=== PATIENT | female | born 1975 | race Caucasian/White ===

== ENCOUNTER 2024-07-30 16:27 | Emergency (ER) | payer OTHER, SELFPAY ==
[2024-07-30 16:35] VITALS: BP 113/70; PULSE 78; RESP 18; TEMP 36.6
[2024-07-30 16:52] VITALS: BP 113/70; PULSE 78; RESP 18; TEMP 36.6
--- NOTE | 2024-07-30 17:06 | ED_ITS ---
HPI - Dental/Oral General Chief complaint: Dental/Oral Stated complaint: Toothache Time Seen by Provider: 07/30/24 16:55 Source: patient, RN notes reviewed and old records reviewed Mode of arrival: ambulatory Limitations: no limitations History of Present Illness HPI Narrative: 48-year-old female presents to [facility] with complaints of dental pain to right lower jaw area with some radiation of pain to her right ear for the past week duration. Patient reports that she has bad teeth has multiple caries to her teeth with some missing teeth noted also. Patient reports that she has been taking Tylenol and Ibuprofen for her discomfort. Patient reports that she needs to get appointment to get all of her teeth pulled. MD Complaint: tooth pain Location: Tooth # (31) Onset (ago): week(s) (1 week) Duration: constant Severity scale (1-10): 8 Treatment prior to arrival: other (Tylenol or Ibuprofen ) Related Data Home Medications Medication Instructions Recorded Confirmed clonidine HCl 0.1 mg tablet 0.1 mg PO BID 07/30/24 07/30/24 hydroxyzine pamoate 50 mg capsule 50 mg PO QID PRN Anxiety 07/30/24 07/30/24 nicotine 21 mg/24 hr daily 1 patch topical DAILY 07/30/24 07/30/24 transdermal patch quetiapine 50 mg tablet 50 mg PO QHS 07/30/24 07/30/24 Allergies Allergy/AdvReac Type Severity Reaction Status Date / Time cefazolin [From [facility]] Allergy Unknown Verified 07/30/24 16:46 codeine Allergy Unknown Verified 07/30/24 16:46 morphine Allergy Unknown Verified 07/30/24 16:47 Review of Systems Review of Systems: CONSTITUTIONAL: Denies fever, chills, or sweats. ENT: Denies rhinorrhea, congestion, sore throat, or otalgia. Reports dental pain to right posterior jaw area with noted caries and swelling around #31 tooth CARDIOVASCULAR: Denies chest pain, palpitations, or edema. RESPIRATORY: Denies cough or dyspnea. SKIN: Denies rash or itching. MUSCULOSKELETAL: Denies myalgia. NEUROLOGIC: Denies headache All systems reviewed & are unremarkable except as noted in HPI and below PMFSH Past Medical History Medical History (Updated 07/30/24 @ 19:38 by Margarita Tineo NP) Buergers disease Hyperglycemia IBS (irritable bowel syndrome) Pancreatitis Social History Social History (Updated 07/30/24 @ 19:35 by Margarita Tineo NP) Smoking packs per day: 0.5 Smoking cigarettes per day: 10.0 Smoking status: Current every day smoker Tobacco type: cigarettes Gender identity (if verbalized by the patient): Female Comments At time of signature, agree with nursing past medical, surgical, social and family history. There is no relevant family history pertinent to the presenting complaint Exam Narrative: GENERAL: Well-appearing, well-nourished, and in no acute distress. HEAD: Normocephalic, atraumatic. EYES: PERRLA and EOMI. ENT: Nares clear, no rhinorrhea or epistaxis. Mucous membranes moist. Missing teeth, broken teeth, multiple caries with teeth darkened and some redness of gum around #31 tooth,no trismus or any Thomas angina NECK: Supple.no lymphadenopathy CHEST: Clear to auscultation. No respiratory distress. no tachypnea or any retractions, denies any shortness of breath unable to get SAO2 reading on fingers due to Buerger's disease HEART: Regular rate and rhythm. No murmur heard. Normal peripheral pulses. SKIN: Warm, dry, no rash. NEURO: No focal deficits. Alert and oriented x3. Course Course Emergency Course: Patient is aware of diagnosis, understands and agrees to treatment plan. Anticipatory guidance given. Patient agrees to follow-up as directed and is aware of reasons to seek care at the emergency department. Portions of this record may have been created with voice recognition software Level of Care: Express Care Visit Vital Signs Vital signs: Vital Signs Temperature 36.6 C 07/30/24 16:35 Pulse Rate 78 07/30/24 16:35 Respiratory Rate 18 07/30/24 16:35 Blood Pressure 113/70 07/30/24 16:35 Oxygen Delivery Room Air 07/30/24 16:35 Temperature 36.6 C 07/30/24 16:52 Pulse Rate 78 07/30/24 16:52 Respiratory Rate 18 07/30/24 16:52 Blood Pressure 113/70 07/30/24 16:52 Oxygen Delivery Room Air 07/30/24 16:52 Reviewed MDM - Dental/Oral MDM Narrative Medical decision making narrative: Patients pain and complaint coupled with physical findings are consistent with dentalgia. There are no focal signs of space occupying lesions that are compromising to the airway; no dysphagia, odynophagia, dysphonia, or dyspnea. No uvular deviation or soft palate edema. Patient is non-toxic appearing. The floor of the mouth is soft with no signs of Thomas's Angina; no induration below mandible, no neck pain.? Patient is without trismus or drooling and able to swallow secretions.? Patient is felt appropriate for discharge home with dental follow up. Differential Diagnosis Differential diagnosis: Likely dental caries, toothache, dental abscess and other (Dental pain) Medical Records Attestation: I reviewed the patient's medical records. Critical Care Time Critical Care Time Critical Care Time: No Discharge Plan Discharge Clinical Impression: Dental caries, Dental abscess Patient Disposition: Home, Self-Care Condition: Stable Instructions: Antibiotic Form, Dental Abscess (ED) Additional Instructions: Avoid temperature extremes May apply heat or ice to the face Gentle brushing and flossing Antibiotic as directed Tylenol for lesser pain Use ibuprofen regularly Follow-up with the dentist as soon as possible--see the list provided If your symptoms persist, change or worsen significantly before you can contact your personal physician then please, without delay, go to the emergency department for further evaluation. Follow-up with PCP in 7-10 days or sooner if needed Prescriptions: New clindamycin HCl 300 mg capsule 300 mg PO Q8H Qty: 30 0RF No Action nicotine 21 mg/24 hr patch 24 hour 1 patch topical DAILY hydroxyzine pamoate 50 mg capsule 50 mg PO QID PRN (Reason: Anxiety) clonidine HCl 0.1 mg tablet 0.1 mg PO BID quetiapine 50 mg tablet 50 mg PO QHS Follow-up/Referrals: Joyce,Soo Pastor APN [Primary Care Provider] - Stand Alone Forms: Work/School Release IP Time of Disposition: 17:19 Quality Enmanuel Coma Scale Eyes: Open Verbal: Oriented and Alert Motor: Follows Commands Enmanuel Coma Total Score: 15
== END 2024-07-30 17:22 | disposition home or self-care (01) ==
PROVIDERS: Emergency Provider Registered Nurse; PCP Nurse Practitioner Family
DX: K02.9 Dental caries, unspecified (principal); K04.7 Periapical abscess without sinus; F17.210 Nicotine dependence, cigarettes, uncomplicated; I73.1 Thromboangiitis obliterans [Buerger's disease]
CPT/HCPCS: 99203; G0463